=== PATIENT | male | born 1930 | race African-American/Black ===

== ENCOUNTER 2018-01-07 07:16 | Emergency (ER) | payer OTHER, MEDICAID ==
[~2018-01-07] VITALS: Ht 180.3 cm; Wt 77.1 kg
[2018-01-07 08:57] LABS: Basophils # (auto) 0 uL; Basophils % (auto) 0.7 % (0.0-2.0); Eosinophils # (auto) 0.5 uL; Eosinophils % (auto) 7.7 % (0.0-7.0); Hematocrit 43.3 % (41.0-53.0); Hemoglobin 14.1 g/dL (13.5-17.5); Lymphocytes # (auto) 1.6 uL; Mean Corpuscular Hemoglobin 31.6 pg (28.0-32.0); Mean Corpuscular Hgb Conc. 32.5 g/dL (32.0-36.0); Mean Corpuscular Volume 97.4 fL (80.0-100.0); Monocytes % (auto) 14.5 % (0.0-12.0); Neutrophils # (auto) 3.6 uL; Neutrophils % (auto) 54.1 % (37.0-80.0); Nucleated Red Blood Cells % 0.1 %; Platelet Count (auto) 235 10^3/uL (140-450); Red Blood Cells 4.44 10^6/uL (4.5-5.90); Red Cell Distribution Width 16.5 % (11.8-14.3); White Blood Cell 6.7 10^3/uL (4.4-10.8)
[2018-01-07 09:15] LABS: Albumin 3.1 g/dL (3.4-5.0); BUN/Creatinine Ratio 13.6; Calcium 8.7 mg/dL (8.5-10.1); Magnesium 2.5 mg/dL (1.6-2.6); Potassium 4.1 mmol/L (3.5-5.1); Total Protein 7.3 g/dL (6.4-8.2)
[2018-01-07 09:31] LABS: Urine Bacteria NONE SEEN /hpf (None Seen); Urine Blood 2+ /uL (Negative); Urine Specific Gravity 1.018 (1.001-1.035); Urine WBC 2 /hpf (0 - 3)
[2018-01-07] MEDS ORDERED: FUROSEMIDE 40 MG/4 ML VIAL IV ONE (10:30)
[2018-01-07] MEDS ORDERED: SPIRONOLACTONE 25 MG TAB PO ONE (10:30)
[2018-01-07 11:11] LABS: INR > 10 (0.9-1.15)
[2018-01-07] MEDS ORDERED: PHYTONADIONE (VIT K)10 MG/ML 1ML VIAL IV ONE (11:30)
[2018-01-07 13:38] VITALS: BP 143/96
[2018-01-07 14:07] VITALS: BP 135/88
== END 2018-01-07 14:26 | disposition short-term general hospital (02) ==
LOC: ER 07:16
DX: R06.02 Shortness of breath (principal); R53.1 Weakness; E11.22 Type 2 diabetes mellitus with diabetic chronic kidney disease; I13.0 Hypertensive heart and chronic kidney disease with heart failure and stage 1 through stage 4 chronic kidney disease, or unspecified chronic kidney disease; N18.3 Chronic kidney disease, stage 3 (moderate); E46 Unspecified protein-calorie malnutrition; T45.515A Adverse effect of anticoagulants, initial encounter; I25.10 Atherosclerotic heart disease of native coronary artery without angina pectoris; I48.91 Unspecified atrial fibrillation; I25.2 Old myocardial infarction; Z95.0 Presence of cardiac pacemaker; Z68.23 Body mass index [BMI] 23.0-23.9, adult; Y92.89 Other specified places as the place of occurrence of the external cause
CPT/HCPCS: 36415; 36430; 71046; 80053; 81001; 83735; 83880; 84484; 85025; 85610; 85730; 86850; 86900; 86901; 93005; 96374; 96375; 99285; J1940; J3430; J7040; P9017

== ENCOUNTER 2018-02-01 14:43 | Emergency (ER) | payer OTHER, MEDICAID ==
[~2018-02-01] VITALS: Ht 180.3 cm; Wt 74.4 kg
[2018-02-01] MEDS ORDERED: FLEET ENEMA(ADULT) 135 ML PR ONE (15:00)
[2018-02-01 15:34] LABS: Basophils # (auto) 0 uL; Basophils % (auto) 0.4 % (0.0-2.0); Eosinophils # (auto) 0.1 uL; Eosinophils % (auto) 1.3 % (0.0-7.0); Hematocrit 49.2 % (41.0-53.0); Hemoglobin 16.2 g/dL (13.5-17.5); Lymphocytes # (auto) 1.5 uL; Lymphocytes % (auto) 24.4 % (10.0-50.0); Mean Corpuscular Hemoglobin 31.7 pg (28.0-32.0); Mean Corpuscular Hgb Conc. 32.9 g/dL (32.0-36.0); Mean Corpuscular Volume 96.5 fL (80.0-100.0); Monocytes # (auto) 0.9 uL; Monocytes % (auto) 14.1 % (0.0-12.0); Neutrophils # (auto) 3.7 uL; Neutrophils % (auto) 59.8 % (37.0-80.0); Nucleated Red Blood Cells % 0.2 %; Platelet Count (auto) 245 10^3/uL (140-450); Red Blood Cells 5.09 10^6/uL (4.5-5.90); Red Cell Distribution Width 15.7 % (11.8-14.3); White Blood Cell 6.3 10^3/uL (4.4-10.8)
[2018-02-01 15:40] LABS: Albumin 2.9 g/dL (3.4-5.0); BUN/Creatinine Ratio 12.7; Calcium 8.6 mg/dL (8.5-10.1); Potassium 4.4 mmol/L (3.5-5.1)
[2018-02-01 15:45] VITALS: BP 126/75
[2018-02-01 15:57] LABS: Bilirubin, Total 1.2 mg/dL (0.2-1.0); Total Protein 7.6 g/dL (6.4-8.2)
== END 2018-02-01 16:59 | disposition home or self-care (01) ==
LOC: EDBD 14:43 → ER 14:43
DX: K59.00 Constipation, unspecified (principal); I48.91 Unspecified atrial fibrillation; J44.9 Chronic obstructive pulmonary disease, unspecified; K21.9 Gastro-esophageal reflux disease without esophagitis; E78.5 Hyperlipidemia, unspecified; I25.2 Old myocardial infarction; E11.22 Type 2 diabetes mellitus with diabetic chronic kidney disease; I13.0 Hypertensive heart and chronic kidney disease with heart failure and stage 1 through stage 4 chronic kidney disease, or unspecified chronic kidney disease; N18.4 Chronic kidney disease, stage 4 (severe); I50.9 Heart failure, unspecified; I25.10 Atherosclerotic heart disease of native coronary artery without angina pectoris; Z95.0 Presence of cardiac pacemaker; Z87.891 Personal history of nicotine dependence
CPT/HCPCS: 36415; 74176; 80053; 82150; 83690; 85025; 94761

== ENCOUNTER 2019-05-18 13:33 | Emergency (ER) | payer OTHER, MEDICAID ==
[~2019-05-18] VITALS: Ht 180.3 cm; Wt 73.9 kg
[2019-05-18 15:09] LABS: Basophils # (auto) 0 uL; Basophils % (auto) 0.6 % (0.0-2.0); Eosinophils # (auto) 0.2 uL; Eosinophils % (auto) 2.7 % (0.0-7.0); Hematocrit 44.7 % (41.0-53.0); Hemoglobin 14.1 g/dL (13.5-17.5); Lymphocytes # (auto) 1.4 uL; Lymphocytes % (auto) 20.4 % (10.0-50.0); Mean Corpuscular Hemoglobin 31.9 pg (28.0-32.0); Mean Corpuscular Hgb Conc. 31.5 g/dL (32.0-36.0); Mean Corpuscular Volume 101.3 fL (80.0-100.0); Monocytes # (auto) 0.8 uL; Monocytes % (auto) 11.2 % (0.0-12.0); Neutrophils # (auto) 4.6 uL; Neutrophils % (auto) 65.1 % (37.0-80.0); Nucleated Red Blood Cells % 0.1 %; Platelet Count (auto) 201 10^3/uL (140-450); Red Blood Cells 4.41 10^6/uL (4.5-5.90); White Blood Cell 7.1 10^3/uL (4.4-10.8)
[2019-05-18 15:24] LABS: Albumin 2.6 g/dL (3.4-5.0); Calcium 8.2 mg/dL (8.5-10.1); Potassium 3.7 mmol/L (3.5-5.1)
[2019-05-18 15:30] LABS: Bilirubin, Total 0.9 mg/dL (0.2-1.0); Total Protein 6.5 g/dL (6.4-8.2)
[2019-05-18 21:27] LABS: Urine Bacteria FEW /hpf (None Seen); Urine Blood Negative /uL (Negative); Urine Mucus FEW (None Seen); Urine Specific Gravity 1.017 (1.001-1.035); Urine WBC 1 /hpf (0 - 3)
[2019-05-18 22:27] VITALS: BP 149/85
[2019-05-26] MEDS ORDERED: FURO40TA4 PO (03:33)
[2019-05-26] MEDS ORDERED: DILT30TA24 PO (03:33)
[2019-05-26] MEDS ORDERED: FINA5TAB4 PO (03:33)
[2019-05-26] MEDS ORDERED: ALBU2TAB4 IN (03:33)
[2019-05-26] MEDS ORDERED: TAMS0.4C36 PO (03:33)
[2019-05-26] MEDS ORDERED: NITR0.4S29 SL (03:33)
[2019-05-26] MEDS ORDERED: FAMO-12 PO (03:33)
[2019-05-26] MEDS ORDERED: INSLANTI SC (03:33)
[2019-05-26] MEDS ORDERED: WARF2.5T39 PO (03:33)
[2019-05-26] MEDS ORDERED: HYDR-4833 PO (03:33)
[2019-05-26] MEDS ORDERED: METO25TA93 PO (03:33)
[2019-05-26] MEDS ORDERED: INSREG3 SC (03:33)
[2019-05-26] MEDS ORDERED: ATOR10TA52 PO (03:33)
[2019-05-26] MEDS ORDERED: TIOT17SP IN (03:33)
[2019-05-26] MEDS ORDERED: POTA10TA51 PO (03:33)
[2019-05-26] MEDS ORDERED: NITR-52 PO (16:27)
== END 2019-05-18 22:33 | disposition home or self-care (01) ==
LOC: ER 13:41
DX: F03.90 Unspecified dementia, unspecified severity, without behavioral disturbance, psychotic disturbance, mood disturbance, and anxiety (principal); N39.0 Urinary tract infection, site not specified; E11.22 Type 2 diabetes mellitus with diabetic chronic kidney disease; I13.0 Hypertensive heart and chronic kidney disease with heart failure and stage 1 through stage 4 chronic kidney disease, or unspecified chronic kidney disease; N18.9 Chronic kidney disease, unspecified; I50.9 Heart failure, unspecified; J44.9 Chronic obstructive pulmonary disease, unspecified; K21.9 Gastro-esophageal reflux disease without esophagitis; E78.5 Hyperlipidemia, unspecified; I25.2 Old myocardial infarction; Z87.891 Personal history of nicotine dependence; Z88.8 Allergy status to other drugs, medicaments and biological substances
CPT/HCPCS: 36415; 71046; 80053; 81001; 82962; 83880; 84484; 85025; 93005

== ENCOUNTER 2019-09-08 12:00 | Emergency (ER) | payer OTHER, MEDICAID ==
[~2019-09-08] VITALS: Ht 182.9 cm; Wt 104.3 kg
[~2019-09-08 12:00] MED LIST: ALBU2TAB4 IN; AMOX500T86 PO; ATOR10TA52 PO; FAMO-12 PO; FINA5TAB4 PO; FURO40TA4 PO; HYDR-4833 PO; INSLANTI SC; INSREG3 SC; METO25TA93 PO; NITR0.4S29 SL; POTA10TA51 PO; TAMS0.4C36 PO; TIOT17SP IN; WARF2.5T39 PO
[2019-09-08 12:57] LABS: Basophils # (auto) 0.1 10 ^3/uL (0-0.2); Basophils % (auto) 0.7 % (0.0-2.0); Eosinophils # (auto) 0.1 10 ^3/uL (0-0.8); Eosinophils % (auto) 1.3 % (0.0-7.0); Hematocrit 44.8 % (41.0-53.0); Hemoglobin 14.4 g/dL (13.5-17.5); Lymphocytes # (auto) 0.7 10 ^3/uL (0.4-5.4); Lymphocytes % (auto) 8.8 % (10.0-50.0); Mean Corpuscular Hemoglobin 31.3 pg (28.0-32.0); Mean Corpuscular Volume 97.7 fL (80.0-100.0); Monocytes # (auto) 0.5 10 ^3/uL (0-1.3); Monocytes % (auto) 6.2 % (0.0-12.0); Neutrophils # (auto) 6.9 10 ^3/uL (1.6-8.6); Nucleated Red Blood Cells % 0.1 %; Platelet Count (auto) 249 10^3/uL (140-450); Red Blood Cells 4.59 10^6/uL (4.5-5.90); Red Cell Distribution Width 16.2 % (11.8-14.3); White Blood Cell 8.3 10^3/uL (4.4-10.8)
[2019-09-08 13:50] LABS: Albumin 2.2 g/dL (3.4-5.0); Calcium 8.1 mg/dL (8.5-10.1); Magnesium 2.4 mg/dL (1.6-2.6); Potassium 4.5 mmol/L (3.5-5.1)
[2019-09-08 14:02] LABS: BUN/Creatinine Ratio 20.6; Total Protein 6.6 g/dL (6.4-8.2)
[2019-09-08 14:07] LABS: INR 1.3 (0.9-1.15)
[2019-09-08] MEDS ORDERED: ASPirin-EC 81 mg tab PO ONE (15:00)
[2019-09-08 15:14] LABS: Urine Bacteria NONE SEEN /hpf (None Seen); Urine Blood TRACE /uL (Negative); Urine Mucus FEW (None Seen); Urine Specific Gravity 1.015 (1.001-1.035); Urine WBC <1 /hpf (0 - 3)
[2019-09-08 17:00] VITALS: BP 152/96
== END 2019-09-08 18:42 | disposition short-term general hospital (02) ==
LOC: ER 12:00 → EDBD 12:00 → ER 18:42
DX: S09.8XXA Other specified injuries of head, initial encounter (principal); R07.89 Other chest pain; R62.7 Adult failure to thrive; I13.0 Hypertensive heart and chronic kidney disease with heart failure and stage 1 through stage 4 chronic kidney disease, or unspecified chronic kidney disease; E11.22 Type 2 diabetes mellitus with diabetic chronic kidney disease; N18.3 Chronic kidney disease, stage 3 (moderate); I50.43 Acute on chronic combined systolic (congestive) and diastolic (congestive) heart failure; M19.90 Unspecified osteoarthritis, unspecified site; I25.10 Atherosclerotic heart disease of native coronary artery without angina pectoris; J44.9 Chronic obstructive pulmonary disease, unspecified; K21.9 Gastro-esophageal reflux disease without esophagitis; E78.5 Hyperlipidemia, unspecified; I25.2 Old myocardial infarction; W06.XXXA Fall from bed, initial encounter; Y93.89 Activity, other specified; Y92.009 Unspecified place in unspecified non-institutional (private) residence as the place of occurrence of the external cause; Y99.8 Other external cause status
CPT/HCPCS: 36415; 70450; 71045; 72125; 80053; 81001; 83735; 83880; 84443; 84484; 85025; 85610; 85730; 93005; 99291

== ENCOUNTER → 2019-09-12 | Emergency (ER) | payer OTHER, MEDICAID ==
[~2019-09-12] VITALS: Ht 180.3 cm; Wt 72.6 kg
[~2019-09-12] MED LIST changes: +ASPirin 81 mg TAB PO ONE; +AZITHROMYCIN 500MG/ 250ML 250 ML IV ONE; +ENOXAPARIN SOD 80 MG/0.8ML SYRINGE SC ONE; +FUROSEMIDE 40 MG/4 ML VIAL IV ONE; +LABETALOL HCL 5 MG/ML 4ML SYRINGE IV ONE; +cefTRIAXone 1GM/50ML D5W 50 ML IV ONE
[2019-09-12 07:19] LABS: Basophils # (auto) 0.1 10 ^3/uL (0-0.2); Basophils % (auto) 1.1 % (0.0-2.0); Eosinophils # (auto) 0.5 10 ^3/uL (0-0.8); Eosinophils % (auto) 6.5 % (0.0-7.0); Lymphocytes # (auto) 1.4 10 ^3/uL (0.4-5.4); Lymphocytes % (auto) 16.8 % (10.0-50.0); Mean Corpuscular Hemoglobin 31.5 pg (28.0-32.0); Mean Corpuscular Hgb Conc. 32.4 g/dL (32.0-36.0); Mean Corpuscular Volume 97.3 fL (80.0-100.0); Monocytes % (auto) 12.3 % (0.0-12.0); Neutrophils # (auto) 5.4 10 ^3/uL (1.6-8.6); Neutrophils % (auto) 63.3 % (37.0-80.0); Nucleated Red Blood Cells % 0.2 %; Platelet Count (auto) 235 10^3/uL (140-450); Red Blood Cells 4.42 10^6/uL (4.5-5.90); Red Cell Distribution Width 16.4 % (11.8-14.3); White Blood Cell 8.5 10^3/uL (4.4-10.8)
[2019-09-12 07:43] LABS: Albumin 2.4 g/dL (3.4-5.0); Calcium 8.1 mg/dL (8.5-10.1)
[2019-09-12 07:50] LABS: BUN/Creatinine Ratio 16.1; Bilirubin, Total 1.1 mg/dL (0.2-1.0); Total Protein 6.9 g/dL (6.4-8.2)
[2019-09-12 08:13] LABS: Urine Bacteria NONE SEEN /hpf (None Seen); Urine Blood 1+ /uL (Negative); Urine Hyaline Cast FEW /lpf (0 - 2); Urine Specific Gravity 1.011 (1.001-1.035); Urine WBC <1 /hpf (0 - 3)
[2019-09-12 11:04] LABS: Alcohol, Urine < 3.0 mg/dL (0-5); Amphetamine Screen, Urine NEGATIVE (NEGATIVE); Barbiturate Scree,Urine NEGATIVE (NEGATIVE); Benzodiazephine Screen, Urine NEGATIVE (NEGATIVE); Cannabinoid Screen, Urine NEGATIVE (NEGATIVE); Cocaine Screen, Urine NEGATIVE (NEGATIVE); Opiate Scree,Urine NEGATIVE (NEGATIVE); Phencyclidine Screen, Urine NEGATIVE (NEGATIVE)
[2019-09-12 12:31] VITALS: BP 134/86
== END | disposition home or self-care (01) ==
LOC: EDUNIT# 06:16 → ER 06:21 → EDBD 06:21
DX: J18.9 Pneumonia, unspecified organism (principal); E44.0 Moderate protein-calorie malnutrition; R79.89 Other specified abnormal findings of blood chemistry; I13.0 Hypertensive heart and chronic kidney disease with heart failure and stage 1 through stage 4 chronic kidney disease, or unspecified chronic kidney disease; E11.22 Type 2 diabetes mellitus with diabetic chronic kidney disease; N18.9 Chronic kidney disease, unspecified; I50.9 Heart failure, unspecified; M19.90 Unspecified osteoarthritis, unspecified site; J44.9 Chronic obstructive pulmonary disease, unspecified; K21.9 Gastro-esophageal reflux disease without esophagitis; E78.5 Hyperlipidemia, unspecified; I25.2 Old myocardial infarction
CPT/HCPCS: 36415; 70450; 71045; 80053; 80307; 81001; 83880; 84484; 85025; 96365; 96366; 96367; 96372; 96375; 99291; J0456; J0696; J1650; J1940

== ENCOUNTER 2019-11-28 21:08 | Inpatient (IN) | payer OTHER, MEDICAID ==
[~2019-11-28] VITALS: Ht 185.4 cm; Wt 78.0 kg
[~2019-11-28 21:08] MED LIST changes: -ASPirin 81 mg TAB PO ONE; -AZITHROMYCIN 500MG/ 250ML 250 ML IV ONE; -ENOXAPARIN SOD 80 MG/0.8ML SYRINGE SC ONE; -FUROSEMIDE 40 MG/4 ML VIAL IV ONE; -LABETALOL HCL 5 MG/ML 4ML SYRINGE IV ONE; -cefTRIAXone 1GM/50ML D5W 50 ML IV ONE
[2019-11-28 23:48] LABS: Basophils # (auto) 0.1 10 ^3/uL (0-0.2); Eosinophils # (auto) 0.2 10 ^3/uL (0-0.8); Eosinophils % (auto) 3.6 % (0.0-7.0); Hematocrit 41.8 % (41.0-53.0); Hemoglobin 13.4 g/dL (13.5-17.5); Lymphocytes # (auto) 1.4 10 ^3/uL (0.4-5.4); Lymphocytes % (auto) 21.8 % (10.0-50.0); Mean Corpuscular Hemoglobin 30.8 pg (28.0-32.0); Mean Corpuscular Volume 96.1 fL (80.0-100.0); Monocytes # (auto) 0.9 10 ^3/uL (0-1.3); Monocytes % (auto) 13.3 % (0.0-12.0); Neutrophils # (auto) 3.9 10 ^3/uL (1.6-8.6); Neutrophils % (auto) 60.3 % (37.0-80.0); Platelet Count (auto) 251 10^3/uL (140-450); Red Blood Cells 4.35 10^6/uL (4.5-5.90); Red Cell Distribution Width 16.1 % (11.8-14.3); White Blood Cell 6.5 10^3/uL (4.4-10.8)
[2019-11-29 00:06] LABS: Alanine Aminotransferase 31 U/L (16-61); Albumin 2.5 g/dL (3.4-5.0); Anion Gap 4 (5-15); Aspartate Aminotransferase 24 U/L (15-37); BUN/Creatinine Ratio 17.4; Blood Alcohol < 3.0 mg/dL (0-5); Blood Urea Nitrogen 38 mg/dL (7-18); Calcium 8.4 mg/dL (8.5-10.1); Carbon Dioxide 30 mmol/L (21-32); Chloride 109 mmol/L (98-107); GFR African American 37 mL/min; GFR Non-African American 31 mL/min; Glucose 146 mg/dL (74-106); Potassium 4.1 mmol/L (3.5-5.1); Sodium 143 mmol/L (136-145)
[2019-11-29 00:08] LABS: INR 1.16 (0.9-1.15)
[2019-11-29 00:11] LABS: Alkaline Phosphatase 98 U/L (45-117); Bilirubin, Total 0.7 mg/dL (0.2-1.0); Total Protein 7.1 g/dL (6.4-8.2)
[2019-11-29 03:02] LABS: Urine Bacteria FEW /hpf (None Seen); Urine Blood Negative /uL (Negative); Urine Hyaline Cast FEW /lpf (0 - 2); Urine Mucus FEW (None Seen); Urine Specific Gravity 1.012 (1.001-1.035); Urine WBC 1 /hpf (0 - 3)
[2019-11-29 03:03] LABS: Alcohol, Urine < 3.0 mg/dL (0-10); Amphetamine Screen, Urine NEGATIVE (NEGATIVE); Barbiturate Scree,Urine NEGATIVE (NEGATIVE); Benzodiazephine Screen, Urine NEGATIVE (NEGATIVE); Cannabinoid Screen, Urine NEGATIVE (NEGATIVE); Cocaine Screen, Urine NEGATIVE (NEGATIVE); Opiate Scree,Urine POSITIVE (NEGATIVE); Phencyclidine Screen, Urine NEGATIVE (NEGATIVE)
[2019-11-29] MEDS ORDERED: MORPHINE SULF INJ 2 MG/ML SYRINGE 1ML IV PRN (09:15)
[2019-11-29] MEDS ORDERED: NITROGLYCERIN 0.4 MG SL TAB SL PRN (09:15)
[2019-11-29] MEDS ORDERED: ALBUTEROL SULF 2.5 MG/0.5ML(0.5%) NEB SOLN NEB PRN (10:00)
[2019-11-29] MEDS ORDERED: ATORVASTATIN 20 MG TAB PO SCH (10:00)
[2019-11-29] MEDS ORDERED: TAMSULOSIN HYDROCHLORIDE 0.4 MG CAP PO SCH (10:00)
[2019-11-29] MEDS ORDERED: LABETALOL HCL 5 MG/ML ML 20ML VIAL IV PRN (10:00)
[2019-11-29] MEDS ORDERED: ONDANSETRON HCL 4 MG/2 ML VIAL IV PRN (10:00)
[2019-11-29] MEDS ORDERED: ACETAMINOPHEN 500 MG TAB PO PRN (10:00)
[2019-11-29] MEDS: TIOTROPIUM 2.5 MCG IN SCH (11:24)
[2019-11-29] MEDS: SODIUM CHLORIDE 0.9% 1,000 ML IV SCH (11:24)
[2019-11-29] MEDS: ASPirin 81 mg TAB PO SCH (11:25)
[2019-11-29] MEDS: levoFLOXacin 500MG 100 ML IV SCH (11:25)
[2019-11-29] MEDS: traMADol HCL 50 MG TAB PO PRN (11:26)
[2019-11-29] MEDS: FINASTERIDE 5 MG TAB PO SCH (11:26)
[2019-11-29] MEDS: METOPROLOL SUCCINATE XL 50 MG TAB PO SCH (11:26)
[2019-11-29] MEDS: InsuLIN REG 1unit/0.01ml Soln (100units/ml) SC SCH ×3 (11:30→22:00)
[2019-11-29] MEDS: ACCU-CHEK COMFORT CURVE STRIP VI SCH ×3 (11:40→22:10)
[2019-11-29] MEDS: DEXTROSE (50%) 50ML SYRG IV PRN (11:42)
[2019-11-29] MEDS: ALBUTEROL SULF 2.5 MG/0.5ML(0.5%) NEB SOLN NEB SCH ×2 (13:19→18:00)
[2019-11-29 13:47] VITALS: BP 126/103
[2019-11-29 14:04] VITALS: BP 126/103
[2019-11-29] MEDS: CLINDAMYCIN 600MG IV 50 ML IV SCH ×2 (15:11→22:09)
[2019-11-29 16:53] VITALS: BP 114/68
[2019-11-29] MEDS: TAMSULOSIN HYDROCHLORIDE 0.4 MG CAP PO SCH (18:11)
[2019-11-29] MEDS: INSULIN LANTUS (GLARGINE) 1 /0.01ml (100units/ml) SC SCH (18:23)
[2019-11-29] MEDS ORDERED: HYDR-4072 PO (19:27)
[2019-11-29 22:00] VITALS: BP 132/79
[2019-11-29] MEDS: APIXABAN 2.5 MG TAB PO SCH (22:09)
[2019-11-29] MEDS: ATORVASTATIN 20 MG TAB PO SCH (22:10)
[2019-11-30 05:00] VITALS: BP 132/76
[2019-11-30] MEDS: InsuLIN REG 1unit/0.01ml Soln (100units/ml) SC SCH ×4 (06:47→22:12)
[2019-11-30] MEDS: ACCU-CHEK COMFORT CURVE STRIP VI SCH ×4 (06:47→22:09)
[2019-11-30] MEDS: CLINDAMYCIN 600MG IV 50 ML IV SCH ×3 (06:48→22:09)
[2019-11-30] MEDS: SODIUM CHLORIDE 0.9% 1,000 ML IV SCH (06:48)
[2019-11-30] MEDS: APIXABAN 2.5 MG TAB PO SCH ×2 (08:58→22:09)
[2019-11-30] MEDS: ASPirin 81 mg TAB PO SCH (08:58)
[2019-11-30] MEDS: FINASTERIDE 5 MG TAB PO SCH (08:58)
[2019-11-30] MEDS: TIOTROPIUM 2.5 MCG IN SCH (08:59)
[2019-11-30 09:00] VITALS: BP 130/86
[2019-11-30] MEDS: levoFLOXacin 500MG 100 ML IV SCH (09:00)
[2019-11-30] MEDS: METOPROLOL SUCCINATE XL 50 MG TAB PO SCH (09:00)
[2019-11-30 10:00] LABS: Albumin 2.2 g/dL (3.4-5.0); Calcium 8.2 mg/dL (8.5-10.1); Potassium 4.4 mmol/L (3.5-5.1)
[2019-11-30 10:03] LABS: BUN/Creatinine Ratio 18.4; Bilirubin, Total 0.9 mg/dL (0.2-1.0); Total Protein 6.1 g/dL (6.4-8.2)
[2019-11-30] MEDS ORDERED: FUROSEMIDE 40 MG/4 ML VIAL IV ONE (11:00)
[2019-11-30 13:00] VITALS: BP 148/84
[2019-11-30 17:00] VITALS: BP 131/85
[2019-11-30] MEDS: FUROSEMIDE 40 MG/4 ML VIAL IV SCH (17:42)
[2019-11-30] MEDS: TAMSULOSIN HYDROCHLORIDE 0.4 MG CAP PO SCH (17:42)
[2019-11-30] MEDS: INSULIN LANTUS (GLARGINE) 1 /0.01ml (100units/ml) SC SCH (17:45)
[2019-11-30 22:00] VITALS: BP 133/75
[2019-11-30] MEDS: ATORVASTATIN 20 MG TAB PO SCH (22:09)
[2019-12-01] MEDS: traMADol HCL 50 MG TAB PO PRN ×2 (02:02→13:13)
[2019-12-01 05:00] VITALS: BP 125/76
[2019-12-01] MEDS: ACCU-CHEK COMFORT CURVE STRIP VI SCH ×4 (05:49→23:16)
[2019-12-01] MEDS: DEXTROSE (50%) 50ML SYRG IV PRN (05:50)
[2019-12-01] MEDS: InsuLIN REG 1unit/0.01ml Soln (100units/ml) SC SCH ×4 (06:06→23:30)
[2019-12-01] MEDS: CLINDAMYCIN 600MG IV 50 ML IV SCH ×3 (06:13→23:15)
[2019-12-01] MEDS: FUROSEMIDE 40 MG/4 ML VIAL IV SCH ×2 (06:14→17:52)
[2019-12-01 09:00] VITALS: BP 117/57
[2019-12-01] MEDS: POTASSIUM CHL 20 Meq TABLET PO SCH (09:50)
[2019-12-01] MEDS: APIXABAN 2.5 MG TAB PO SCH ×2 (09:50→23:15)
[2019-12-01] MEDS: ASPirin 81 mg TAB PO SCH (09:50)
[2019-12-01] MEDS: FINASTERIDE 5 MG TAB PO SCH (09:50)
[2019-12-01] MEDS: levoFLOXacin 500MG 100 ML IV SCH (09:51)
[2019-12-01] MEDS: TIOTROPIUM 2.5 MCG IN SCH (09:51)
[2019-12-01] MEDS: METOPROLOL SUCCINATE XL 50 MG TAB PO SCH (09:51)
[2019-12-01] MEDS: LACTULOSE 20Gm/30ML SOLN PO PRN (12:19)
[2019-12-01 17:47] VITALS: BP 130/79
[2019-12-01] MEDS: TAMSULOSIN HYDROCHLORIDE 0.4 MG CAP PO SCH (17:51)
[2019-12-01] MEDS: INSULIN LANTUS (GLARGINE) 1 /0.01ml (100units/ml) SC SCH (17:59)
[2019-12-01 22:00] VITALS: BP 145/62
[2019-12-01] MEDS: ATORVASTATIN 20 MG TAB PO SCH (23:16)
[2019-12-02 05:46] VITALS: BP 128/89
[2019-12-02 06:37] LABS: Basophils # (auto) 0.1 10 ^3/uL (0-0.2); Basophils % (auto) 0.7 % (0.0-2.0); Eosinophils # (auto) 0.1 10 ^3/uL (0-0.8); Eosinophils % (auto) 1.5 % (0.0-7.0); Hematocrit 37.7 % (41.0-53.0); Hemoglobin 12.2 g/dL (13.5-17.5); Lymphocytes # (auto) 1.5 10 ^3/uL (0.4-5.4); Lymphocytes % (auto) 18.5 % (10.0-50.0); Mean Corpuscular Hemoglobin 30.9 pg (28.0-32.0); Mean Corpuscular Hgb Conc. 32.5 g/dL (32.0-36.0); Mean Corpuscular Volume 95.3 fL (80.0-100.0); Monocytes # (auto) 1.4 10 ^3/uL (0-1.3); Monocytes % (auto) 17.7 % (0.0-12.0); Neutrophils # (auto) 4.8 10 ^3/uL (1.6-8.6); Neutrophils % (auto) 61.6 % (37.0-80.0); Platelet Count (auto) 205 10^3/uL (140-450); Red Blood Cells 3.95 10^6/uL (4.5-5.90); Red Cell Distribution Width 15.3 % (11.8-14.3); White Blood Cell 7.9 10^3/uL (4.4-10.8)
[2019-12-02] MEDS: CLINDAMYCIN 600MG IV 50 ML IV SCH ×3 (06:41→22:13)
[2019-12-02] MEDS: ACCU-CHEK COMFORT CURVE STRIP VI SCH ×4 (06:42→22:13)
[2019-12-02] MEDS: InsuLIN REG 1unit/0.01ml Soln (100units/ml) SC SCH ×4 (06:42→22:43)
[2019-12-02] MEDS: FUROSEMIDE 40 MG/4 ML VIAL IV SCH ×2 (06:42→17:37)
[2019-12-02 06:53] LABS: Calcium 8.2 mg/dL (8.5-10.1); Potassium 4.1 mmol/L (3.5-5.1)
[2019-12-02 06:59] LABS: Albumin 2.1 g/dL (3.4-5.0); BUN/Creatinine Ratio 19.1; Bilirubin, Total 1.4 mg/dL (0.2-1.0); Total Protein 6.2 g/dL (6.4-8.2)
[2019-12-02 09:00] VITALS: BP 129/70
[2019-12-02] MEDS: POTASSIUM CHL 20 Meq TABLET PO SCH (09:57)
[2019-12-02] MEDS: FINASTERIDE 5 MG TAB PO SCH (09:57)
[2019-12-02] MEDS: APIXABAN 2.5 MG TAB PO SCH ×2 (09:57→22:12)
[2019-12-02] MEDS: ASPirin 81 mg TAB PO SCH (09:57)
[2019-12-02] MEDS: levoFLOXacin 500MG 100 ML IV SCH (09:57)
[2019-12-02] MEDS: traMADol HCL 50 MG TAB PO PRN ×3 (09:58→22:13)
[2019-12-02] MEDS: TIOTROPIUM 2.5 MCG IN SCH (10:00)
[2019-12-02] MEDS: METOPROLOL SUCCINATE XL 50 MG TAB PO SCH (10:01)
[2019-12-02 10:53] VITALS: BP 131/64
[2019-12-02 15:21] VITALS: BP 150/87
[2019-12-02 17:00] VITALS: BP 117/65
[2019-12-02] MEDS: TAMSULOSIN HYDROCHLORIDE 0.4 MG CAP PO SCH (17:37)
[2019-12-02] MEDS: INSULIN LANTUS (GLARGINE) 1 /0.01ml (100units/ml) SC SCH (17:42)
[2019-12-02] MEDS: ATORVASTATIN 20 MG TAB PO SCH (22:12)
[2019-12-02 22:16] VITALS: BP 112/75
[2019-12-03 05:00] VITALS: BP 122/75
[2019-12-03] MEDS: ACCU-CHEK COMFORT CURVE STRIP VI SCH ×4 (05:49→21:35)
[2019-12-03] MEDS: InsuLIN REG 1unit/0.01ml Soln (100units/ml) SC SCH ×4 (05:49→22:00)
[2019-12-03] MEDS: FUROSEMIDE 40 MG/4 ML VIAL IV SCH ×2 (06:00→17:40)
[2019-12-03] MEDS: CLINDAMYCIN 600MG IV 50 ML IV SCH ×3 (06:02→21:34)
[2019-12-03] MEDS: POTASSIUM CHL 20 Meq TABLET PO SCH (09:24)
[2019-12-03] MEDS: METOPROLOL SUCCINATE XL 50 MG TAB PO SCH (09:24)
[2019-12-03] MEDS: levoFLOXacin 500MG 100 ML IV SCH (09:24)
[2019-12-03] MEDS: FINASTERIDE 5 MG TAB PO SCH (09:24)
[2019-12-03] MEDS: ASPirin 81 mg TAB PO SCH (09:24)
[2019-12-03] MEDS: traMADol HCL 50 MG TAB PO PRN ×2 (09:24→17:50)
[2019-12-03] MEDS: TIOTROPIUM 2.5 MCG IN SCH (09:25)
[2019-12-03] MEDS: APIXABAN 2.5 MG TAB PO SCH ×2 (09:25→21:34)
[2019-12-03 10:05] VITALS: BP 112/66
[2019-12-03 13:00] VITALS: BP 104/64
[2019-12-03 16:46] VITALS: BP 106/65
[2019-12-03] MEDS: TAMSULOSIN HYDROCHLORIDE 0.4 MG CAP PO SCH (17:40)
[2019-12-03] MEDS: INSULIN LANTUS (GLARGINE) 1 /0.01ml (100units/ml) SC SCH (18:00)
[2019-12-03] MEDS: ATORVASTATIN 20 MG TAB PO SCH (21:34)
[2019-12-03 22:00] VITALS: BP 121/74
[2019-12-04 05:00] VITALS: BP 114/68
[2019-12-04] MEDS: CLINDAMYCIN 600MG IV 50 ML IV SCH ×3 (06:19→22:31)
[2019-12-04] MEDS: FUROSEMIDE 40 MG/4 ML VIAL IV SCH ×2 (06:19→17:55)
[2019-12-04] MEDS: ACCU-CHEK COMFORT CURVE STRIP VI SCH ×4 (06:19→22:32)
[2019-12-04] MEDS: InsuLIN REG 1unit/0.01ml Soln (100units/ml) SC SCH ×4 (06:19→22:39)
[2019-12-04 08:00] VITALS: BP 114/68
[2019-12-04 09:00] VITALS: BP 123/67
[2019-12-04] MEDS: APIXABAN 2.5 MG TAB PO SCH ×2 (09:44→22:31)
[2019-12-04] MEDS: levoFLOXacin 500MG 100 ML IV SCH (09:44)
[2019-12-04] MEDS: ASPirin 81 mg TAB PO SCH (09:44)
[2019-12-04] MEDS: POTASSIUM CHL 20 Meq TABLET PO SCH (09:45)
[2019-12-04] MEDS: FINASTERIDE 5 MG TAB PO SCH (09:45)
[2019-12-04] MEDS: METOPROLOL SUCCINATE XL 50 MG TAB PO SCH (09:45)
[2019-12-04] MEDS: TIOTROPIUM 2.5 MCG IN SCH (09:46)
[2019-12-04] MEDS: traMADol HCL 50 MG TAB PO PRN (09:59)
[2019-12-04 13:00] VITALS: BP 114/61
[2019-12-04 17:00] VITALS: BP 114/59
[2019-12-04] MEDS: TAMSULOSIN HYDROCHLORIDE 0.4 MG CAP PO SCH (17:55)
[2019-12-04] MEDS: INSULIN LANTUS (GLARGINE) 1 /0.01ml (100units/ml) SC SCH (17:58)
[2019-12-04 22:00] VITALS: BP 119/61
[2019-12-04] MEDS: ATORVASTATIN 20 MG TAB PO SCH (22:32)
[2019-12-05 05:00] VITALS: BP 115/59
[2019-12-05] MEDS: FUROSEMIDE 40 MG/4 ML VIAL IV SCH ×2 (05:53→18:00)
[2019-12-05] MEDS: CLINDAMYCIN 600MG IV 50 ML IV SCH ×3 (05:53→22:00)
[2019-12-05] MEDS: ACCU-CHEK COMFORT CURVE STRIP VI SCH ×4 (06:38→22:04)
[2019-12-05] MEDS: InsuLIN REG 1unit/0.01ml Soln (100units/ml) SC SCH ×4 (06:39→22:05)
[2019-12-05 08:00] VITALS: BP 117/66
[2019-12-05 09:00] VITALS: BP 117/66
[2019-12-05] MEDS: levoFLOXacin 500MG 100 ML IV SCH (10:00)
[2019-12-05] MEDS: POTASSIUM CHL 20 Meq TABLET PO SCH (10:00)
[2019-12-05] MEDS: TIOTROPIUM 2.5 MCG IN SCH (10:00)
[2019-12-05] MEDS: FINASTERIDE 5 MG TAB PO SCH (10:00)
[2019-12-05] MEDS: LACTULOSE 20Gm/30ML SOLN PO PRN (10:45)
[2019-12-05] MEDS: traMADol HCL 50 MG TAB PO PRN ×2 (11:32→12:47)
[2019-12-05] MEDS: METOPROLOL SUCCINATE XL 50 MG TAB PO SCH (11:33)
[2019-12-05] MEDS: ASPirin 81 mg TAB PO SCH (11:34)
[2019-12-05] MEDS: APIXABAN 2.5 MG TAB PO SCH ×2 (11:34→22:04)
[2019-12-05 13:00] VITALS: BP 115/76
[2019-12-05] MEDS: INSULIN LANTUS (GLARGINE) 1 /0.01ml (100units/ml) SC SCH (18:00)
[2019-12-05] MEDS: TAMSULOSIN HYDROCHLORIDE 0.4 MG CAP PO SCH (18:21)
[2019-12-05 22:00] VITALS: BP 135/80
[2019-12-05] MEDS: ATORVASTATIN 20 MG TAB PO SCH (22:04)
[2019-12-06] MEDS: CLINDAMYCIN 600MG IV 50 ML IV SCH (06:00)
[2019-12-06] MEDS: FUROSEMIDE 40 MG/4 ML VIAL IV SCH ×2 (06:00→18:00)
[2019-12-06] MEDS: InsuLIN REG 1unit/0.01ml Soln (100units/ml) SC SCH ×4 (06:27→22:00)
[2019-12-06] MEDS: ACCU-CHEK COMFORT CURVE STRIP VI SCH ×4 (06:27→22:00)
[2019-12-06 08:00] VITALS: BP 130/93
[2019-12-06 09:00] VITALS: BP 130/93
[2019-12-06] MEDS: levoFLOXacin 500MG 100 ML IV SCH (10:00)
[2019-12-06] MEDS: TIOTROPIUM 2.5 MCG IN SCH (10:00)
[2019-12-06] MEDS: ASPirin 81 mg TAB PO SCH (10:06)
[2019-12-06] MEDS: POTASSIUM CHL 20 Meq TABLET PO SCH (10:07)
[2019-12-06] MEDS: FINASTERIDE 5 MG TAB PO SCH (10:07)
[2019-12-06] MEDS: APIXABAN 2.5 MG TAB PO SCH ×2 (10:07→21:47)
[2019-12-06] MEDS: METOPROLOL SUCCINATE XL 50 MG TAB PO SCH (10:08)
[2019-12-06] MEDS ORDERED: levoFLOXacin 500 MG TAB PO ONE (12:15)
[2019-12-06 13:00] VITALS: BP 121/55
[2019-12-06] MEDS ORDERED: LORazepam 2MG/ML-1ML VIAL IV ONE (13:30)
[2019-12-06] MEDS ORDERED: LORazepam 0.5 MG TAB PO ONE (13:45)
[2019-12-06] MEDS: CLINDAMYCIN HCL 150 MG CAP PO SCH ×2 (14:13→21:47)
[2019-12-06] MEDS: INSULIN LANTUS (GLARGINE) 1 /0.01ml (100units/ml) SC SCH (18:00)
[2019-12-06] MEDS: TAMSULOSIN HYDROCHLORIDE 0.4 MG CAP PO SCH (18:00)
[2019-12-06] MEDS: ATORVASTATIN 20 MG TAB PO SCH (21:47)
[2019-12-06 22:00] VITALS: BP 136/60
[2019-12-07 05:00] VITALS: BP 138/84
[2019-12-07] MEDS: FUROSEMIDE 40 MG/4 ML VIAL IV SCH ×2 (06:00→06:21)
[2019-12-07] MEDS: CLINDAMYCIN HCL 150 MG CAP PO SCH (06:21)
[2019-12-07] MEDS: traMADol HCL 50 MG TAB PO PRN (06:22)
[2019-12-07] MEDS: ACCU-CHEK COMFORT CURVE STRIP VI SCH ×2 (06:46→12:47)
[2019-12-07] MEDS: InsuLIN REG 1unit/0.01ml Soln (100units/ml) SC SCH ×2 (06:47→11:30)
[2019-12-07] MEDS: TIOTROPIUM 2.5 MCG IN SCH (07:44)
[2019-12-07 09:00] VITALS: BP 123/76
[2019-12-07] MEDS ORDERED: LORazepam 2MG/ML-1ML VIAL IM ONE (09:15)
[2019-12-07] MEDS ORDERED: LORazepam 0.5 MG TAB PO PRN (09:45)
[2019-12-07] MEDS ORDERED: levoFLOXacin 500 MG TAB PO SCH (10:00)
[2019-12-07] MEDS: ASPirin 81 mg TAB PO SCH (11:02)
[2019-12-07] MEDS: APIXABAN 2.5 MG TAB PO SCH (11:03)
[2019-12-07] MEDS: FINASTERIDE 5 MG TAB PO SCH (11:04)
[2019-12-07] MEDS: METOPROLOL SUCCINATE XL 50 MG TAB PO SCH (11:04)
[2019-12-07] MEDS: POTASSIUM CHL 20 Meq TABLET PO SCH (11:04)
[2019-12-07 13:00] VITALS: BP_SYST 119; BP_SYST 137; BP_DIAS 59; BP_DIAS 73
[2019-12-07 13:11] VITALS: BP 123/76
[2019-12-08] MEDS ORDERED: levoFLOXacin 500 MG TAB PO SCH (10:00)
== END 2019-12-07 15:35 | DRG 291 ==
LOC: ER 21:08 → EDUNIT# 21:08 → EDBD 21:08 → TELE 21:09 → TELE-EAST 11-29 09:55 → TELE-WESTW 11-29 19:26
PROVIDERS: ADMIT Internal Medicine; ATTEND Family Medicine
DX: I13.0 Hypertensive heart and chronic kidney disease with heart failure and stage 1 through stage 4 chronic kidney disease, or unspecified chronic kidney disease (principal); G93.41 Metabolic encephalopathy; J18.9 Pneumonia, unspecified organism; J96.20 Acute and chronic respiratory failure, unspecified whether with hypoxia or hypercapnia; I50.43 Acute on chronic combined systolic (congestive) and diastolic (congestive) heart failure; J44.0 Chronic obstructive pulmonary disease with (acute) lower respiratory infection; L03.116 Cellulitis of left lower limb; L03.115 Cellulitis of right lower limb; J44.1 Chronic obstructive pulmonary disease with (acute) exacerbation; N18.3 Chronic kidney disease, stage 3 (moderate); I48.91 Unspecified atrial fibrillation; I25.10 Atherosclerotic heart disease of native coronary artery without angina pectoris; E11.22 Type 2 diabetes mellitus with diabetic chronic kidney disease; I49.5 Sick sinus syndrome; E78.5 Hyperlipidemia, unspecified; F03.90 Unspecified dementia, unspecified severity, without behavioral disturbance, psychotic disturbance, mood disturbance, and anxiety; N40.0 Benign prostatic hyperplasia without lower urinary tract symptoms; E78.00 Pure hypercholesterolemia, unspecified; E11.649 Type 2 diabetes mellitus with hypoglycemia without coma; F32.9 Major depressive disorder, single episode, unspecified; K21.9 Gastro-esophageal reflux disease without esophagitis; Z88.8 Allergy status to other drugs, medicaments and biological substances; Z95.0 Presence of cardiac pacemaker; I25.2 Old myocardial infarction; Z20.828 Contact with and (suspected) exposure to other viral communicable diseases
CPT/HCPCS: 36415; 70450; 71045; 80053; 80307; 80320; 81001; 82550; 82962; 83036; 83605; 83880; 84484; 85025; 85379; 85610; 85730; 87040; 87086; 87426; 93005; 93970; 94640; 94760; 97116; 97530; G0378; J1815; J1956; J3490

== ENCOUNTER 2021-01-25 10:37 | Emergency (ER) | payer OTHER, MEDICAID ==
[~2021-01-25] VITALS: Ht 170.2 cm; Wt 54.4 kg
[~2021-01-25 10:37] MED LIST changes: +HYDR-4072 PO; -HYDR-4833 PO
[2021-01-25 11:20] LABS: Basophils # (auto) 0 10 ^3/uL (0-0.2); Basophils % (auto) 0.8 % (0.0-2.0); Eosinophils # (auto) 0.2 10 ^3/uL (0-0.8); Hemoglobin 14.2 g/dL (13.5-17.5); Lymphocytes # (auto) 1.8 10 ^3/uL (0.4-5.4); Lymphocytes % (auto) 30.7 % (10.0-50.0); Mean Corpuscular Hemoglobin 31.6 pg (28.0-32.0); Mean Corpuscular Volume 95.9 fL (80.0-100.0); Monocytes # (auto) 0.5 10 ^3/uL (0-1.3); Monocytes % (auto) 9.1 % (0.0-12.0); Neutrophils # (auto) 3.3 10 ^3/uL (1.6-8.6); Neutrophils % (auto) 56.4 % (37.0-80.0); Nucleated Red Blood Cells % 0.1 %; Red Blood Cells 4.49 10^6/uL (4.5-5.90); White Blood Cell 5.9 10^3/uL (4.4-10.8)
[2021-01-25 11:27] LABS: Albumin 2.5 g/dL (3.4-5.0); Anion Gap 5 (5-15); Blood Urea Nitrogen 36 mg/dL (7-18); Calcium 8.7 mg/dL (8.5-10.1); Carbon Dioxide 25 mmol/L (21-32); Chloride 111 mmol/L (98-107); Glucose 144 mg/dL (74-106); Potassium 4.4 mmol/L (3.5-5.1); Sodium 141 mmol/L (136-145)
[2021-01-25 11:28] LABS: INR 1.16 (0.9-1.15)
[2021-01-25 11:34] LABS: Alanine Aminotransferase 19 U/L (16-61); Alkaline Phosphatase 130 U/L (45-117); Aspartate Aminotransferase 11 U/L (15-37); BUN/Creatinine Ratio 18.1; Bilirubin, Total 1.1 mg/dL (0.2-1.0); GFR African American 41 mL/min; GFR Non-African American 34 mL/min; Total Protein 6.9 g/dL (6.4-8.2)
[2021-01-25 11:35] LABS: Blood Alcohol < 3.0 mg/dL (0-5)
[2021-01-25] MEDS ORDERED: FUROSEMIDE 20 MG/2 ML VIAL IV ONE (11:45)
[2021-01-25 16:23] LABS: Urine Bacteria MANY /hpf (None Seen); Urine Blood TRACE /uL (Negative); Urine Specific Gravity 1.011 (1.001-1.035); Urine WBC 51 /hpf (0 - 3)
[2021-01-25] MEDS ORDERED: cefTRIAXone 1GM/50ML D5W 50 ML IV ONE (17:00)
[2021-01-25 18:49] VITALS: BP 121/85
== END 2021-01-25 19:30 | disposition home or self-care (01) ==
LOC: EDBD 10:37 → ER 10:37
DX: N39.0 Urinary tract infection, site not specified (principal); G93.41 Metabolic encephalopathy; I11.0 Hypertensive heart disease with heart failure; I50.9 Heart failure, unspecified; F03.90 Unspecified dementia, unspecified severity, without behavioral disturbance, psychotic disturbance, mood disturbance, and anxiety; I48.91 Unspecified atrial fibrillation; E78.5 Hyperlipidemia, unspecified; I25.10 Atherosclerotic heart disease of native coronary artery without angina pectoris; J44.9 Chronic obstructive pulmonary disease, unspecified; F32.9 Major depressive disorder, single episode, unspecified; E11.9 Type 2 diabetes mellitus without complications; K21.9 Gastro-esophageal reflux disease without esophagitis; I25.2 Old myocardial infarction; Z95.0 Presence of cardiac pacemaker; Z88.6 Allergy status to analgesic agent; Z88.8 Allergy status to other drugs, medicaments and biological substances; Z79.4 Long term (current) use of insulin; Z79.899 Other long term (current) drug therapy
CPT/HCPCS: 36415; 70450; 71045; 80053; 80320; 81001; 83605; 84484; 85025; 85610; 85730; 87040; 87086; 93005; 96365; 96375; 99285; J0696; J1940; 87088; 87186

== ENCOUNTER 2021-06-18 22:17 | Emergency (ER) | payer OTHER, MEDICAID ==
[~2021-06-18] VITALS: Ht 182.9 cm; Wt 81.6 kg
[2021-06-18] MEDS ORDERED: MORPHINE SULFATE INJECTION 2 MG/ML SYRG IV ONE (23:00)
[2021-06-18] MEDS ORDERED: ALBUTEROL SULF 2.5 MG/0.5ML(0.5%) NEB SOLN NEB ONE (23:00)
[2021-06-18] MEDS ORDERED: SODIUM CHLORIDE 0.9% 1,000 ML IV ONE (23:30)
[2021-06-18] MEDS ORDERED: methylPREDNISolone SOD SUCC 125 MG/2 ML VL IV ONE (23:30)
[2021-06-18 23:41] LABS: Basophils # (auto) 0 10 ^3/uL (0-0.2); Basophils % (auto) 0.2 % (0.0-2.0); Eosinophils # (auto) 0 10 ^3/uL (0-0.8); Eosinophils % (auto) 0.1 % (0.0-7.0); Hematocrit 45.3 % (41.0-53.0); Hemoglobin 14.9 g/dL (13.5-17.5); Lymphocytes # (auto) 0.7 10 ^3/uL (0.4-5.4); Lymphocytes % (auto) 6.2 % (10.0-50.0); Mean Corpuscular Hemoglobin 31.7 pg (28.0-32.0); Mean Corpuscular Volume 96.3 fL (80.0-100.0); Monocytes # (auto) 0.9 10 ^3/uL (0-1.3); Monocytes % (auto) 7.9 % (0.0-12.0); Neutrophils # (auto) 9.6 10 ^3/uL (1.6-8.6); Neutrophils % (auto) 85.6 % (37.0-80.0); Nucleated Red Blood Cells % 0.2 %; Red Blood Cells 4.71 10^6/uL (4.5-5.90); Red Cell Distribution Width 16.4 % (11.8-14.3); White Blood Cell 11.2 10^3/uL (4.4-10.8)
[2021-06-18 23:55] LABS: INR 1.27 (0.9-1.15); Partial Thromboplastin Time 32.6 sec (23.6-33.0)
[2021-06-18 23:57] LABS: Albumin 2.3 g/dL (3.4-5.0); Calcium 8.4 mg/dL (8.5-10.1); Potassium 4.1 mmol/L (3.5-5.1)
[2021-06-19] LABS: Lactic Acid w/Reflex 4.9 mmol/L (0.4-2.0)
[2021-06-19 00:02] LABS: BUN/Creatinine Ratio 12.2; Bilirubin, Total 1.4 mg/dL (0.2-1.0); Total Protein 7.5 g/dL (6.4-8.2)
[2021-06-19] MEDS ORDERED: PIPERACILLIN-TAZOB 3.375GM 100 ML IV ONE (00:15)
[2021-06-19] MEDS ORDERED: METOPROLOL TARTRATE 1MG/1ML-5ML VIAL IV ONE (00:15)
[2021-06-19] MEDS ORDERED: ASPirin 300 MG RECTAL SUPP PR ONE (00:15)
[2021-06-19] MEDS ORDERED: SODIUM CHLORIDE 0.9% 500 ML IV ONE (00:15)
[2021-06-19 01:56] LABS: Urine Bacteria FEW /hpf (None Seen); Urine Blood TRACE /uL (Negative); Urine Hyaline Cast FEW /lpf (0 - 2); Urine Mucus FEW (None Seen); Urine Specific Gravity 1.017 (1.001-1.035); Urine WBC 2 /hpf (0 - 3)
[2021-06-19 19:25] VITALS: BP 142/100
== END 2021-06-19 21:01 | disposition home or self-care (01) ==
LOC: EDBD 22:17 → ER 22:17
DX: A41.9 Sepsis, unspecified organism (principal); I63.9 Cerebral infarction, unspecified; J18.9 Pneumonia, unspecified organism; E86.0 Dehydration; R53.81 Other malaise; N17.9 Acute kidney failure, unspecified; R77.8 Other specified abnormalities of plasma proteins; E43 Unspecified severe protein-calorie malnutrition; I48.91 Unspecified atrial fibrillation; Z68.24 Body mass index [BMI] 24.0-24.9, adult; Z20.822 Contact with and (suspected) exposure to COVID-19
CPT/HCPCS: 36415; 70450; 71045; 80053; 81001; 83605; 83880; 84484; 85025; 85610; 85730; 87040; 87426; 93005; 96361; 96365; 96366; 96375; 99285; C9803; J7030; J7040; U0003